=== PATIENT | female | born 1965 | race Caucasian/White ===

== ENCOUNTER 2016-11-27 08:04 | Emergency (ER) | payer OTHER ==
[~2016-11-27] VITALS: Ht 162.6 cm; Wt 70.6 kg
[~2016-11-27 08:04] MED LIST: ALPR-138 PO; MOTR200T PO; TAB-TAB PO
[2016-11-27 08:08] VITALS: BP 130/92; PULSE 88; RESP 18; TEMP 98; O2SAT 99
[2016-11-27] MEDS ORDERED: LIDOCAINE 1%/EPINEPHrine 1:100,000 SOLN 20 ML VIAL INFIL ONE (09:15)
[2016-11-27] MEDS ORDERED: ULTR50TA5 PO (09:25)
[2016-11-27] MEDS ORDERED: BACT800T5 PO (09:25)
[2016-11-27] MEDS ORDERED: CLIN1CAP5 PO (09:25)
--- NOTE | 2016-11-27 09:25 | PD ---
HPI Chief Complaint: [employer]former Problem/Complaint Time Seen by Provider: 08:52 Travel History International Travel<30 days: No Contact w/Intl Traveler<30days: No Traveled to known affect area: No History of Present Illness HPI 51-year-old female complains of painful cyst in the left side of vaginal area. Patient states that she started having pain and swelling on the left side vaginal area 3 days ago. Patient states that she has increasing pain and swelling since then. Patient denies any fever chills. Patient denies any dysuria or frequency. Patient denies any vaginal discharge or bleeding. Patient states the pain is sharp stabbing pain localized to left vaginal area. Patient denies any pain radiation. On a scale of 1-10 the pain is a 10. PFSH Past Medical History Cancer: No Cardiovascular Problems: No Diabetes: No Endocrine: No Genitourinary: No Hepatitis: Yes (HEPATITIS C) Hiatal Hernia: No Immune Disorder: No Musculoskeletal: No Neurologic: No Psychiatric: Yes (ANXIETY ) Respiratory: No Thyroid Disease: No ?: Not Past Surgical History Abdominal Surgery: No AICD: No Cardiac Surgery: No Ear Surgery: No Endocrine Surgery: No Eye Surgery: No Genitourinary Surgery: No Gynecologic Surgery: No Joint Replacement: No Oral Surgery: Yes (WISDOM TEETH EXTRACTED) Pacemaker: No Thoracic Surgery: No Other Surgery: Yes Social History Alcohol Use: Yes Tobacco Use: Yes Substance Use: No Allergies-Medications (Allergen,Severity, Reaction): Coded Allergies: Codeine (Unverified Allergy, Intermediate, ITCHING AND RASH, 11/27/16) Reported Meds & Prescriptions Reported Meds & Active Scripts Active No Active Prescriptions or Reported Medications Review of Systems General / Constitutional: No: Fever Eyes: No: Visual changes HENT: No: Headaches Cardiovascular: No: Chest Pain or Discomfort Respiratory: No: Shortness of Breath Gastrointestinal: No: Abdominal Pain Genitourinary: No: Dysuria Musculoskeletal: No: Pain Skin: No Rash Neurologic: No: Weakness Psychiatric: No: Depression Endocrine: No: Polydipsia Hematologic/Lymphatic: No: Easy Bruising Physical Exam Narrative GENERAL: Well-nourished, well-developed patient. SKIN: Focused skin assessment warm/dry. HEAD: Normocephalic. EYES: No scleral icterus. No injection or drainage. NECK: Supple, trachea midline. No JVD or lymphadenopathy. CARDIOVASCULAR: Regular rate and rhythm without murmurs, gallops, or rubs. RESPIRATORY: Breath sounds equal bilaterally. No accessory muscle use. GASTROINTESTINAL: Abdomen soft, non-tender, nondistended. MUSCULOSKELETAL: No cyanosis, or edema. BACK: Nontender without obvious deformity. No CVA tenderness. Patient has an area redness swelling induration left labia. Minimal discharge noted. Data Data Last Documented VS Vital Signs Date Time Temp Pulse Resp B/P Pulse Ox O2 Delivery O2 Flow Rate FiO2 11/27/16 08:08 98.0 88 18 130/92 99 Orders Lidocai-Epi 1%-1:100,000 Inj (Xylocaine- (11/27/16 09:15) MDM Medical Decision Making Medical Screen Exam Complete: Yes Emergency Medical Condition: Yes Differential Diagnosis Differential diagnosis including cellulitis, abscess. Narrative Course 51-year-old female with an area redness swelling induration left labia. Procedures Procedure Narrative 1% lidocaine with epinephrine local anesthesia. Betadine wash. 1 cm incision was made on the left labia with #11 scalpel. A large amount of pus recovered. Wound culture obtained. 0.25 inch packing applied. Dressing applied. Diagnosis Primary Impression: Left genital labial abscess Patient Instructions: General Instructions Additional Instructions: Wound care daily. Take medications as directed. Return in 2 days for recheck and packing removal. Med/Other Pt SpecificInfo: Prescription(s) given Scripts Tramadol (Ultram)50 Mg Tab50 Mg PO Q6H PRN (PAIN) #20 TAB Prov:Edwin Madrid MD 11/27/16 Clindamycin 150 Mg Cap2 Tab PO Q6H #80 CAP Prov:Edwin Madrid MD 11/27/16 Sulfamethoxazole-Trimethoprim (Bactrim DS)800-160 Mg Tab1 Tab PO BID #20 TAB Prov:Edwin Madrid MD 11/27/16 Disposition: 01 DISCHARGE HOME Condition: Stable Edwin Madrid MD Nov 27, 2016 09:25
== END 2016-11-27 09:34 | disposition home or self-care (01) ==
LOC: PHED 08:04
DX: N76.4 Abscess of vulva (principal); B96.89 Other specified bacterial agents as the cause of diseases classified elsewhere
CPT/HCPCS: 10061; 87070; 87185